=== PATIENT | male | born 1975 | race Caucasian/White ===

== ENCOUNTER 2017-03-11 22:35 | Emergency (ER) | payer OTHER ==
[~2017-03-11] VITALS: Ht 172.7 cm; Wt 72.7 kg
[2017-03-11 22:50] VITALS: BP 122/70; PULSE 60; RESP 28; O2SAT 99
--- NOTE | 2017-03-11 23:18 | ED.REPORT ---
HPI-Extremity Problem Upper Date of Service March 11, 2017 ED Provider: Dr. Thomas Black M.D. The patient is a healthy 41 year old male who presents to the ED with a left elbow laceration onset 1.5 hours ago, after falling backwards onto a wheelbarrow. The patient denies numbness, tingling, weakness, additional injury/ trauma, or other symptoms. Nursing Notes Stated Complaint: LEFT ELBOW INJURY/CUT Chief Complaint: Extremity Trauma Nursing Notes Reviewed: Yes Allergies: Coded Allergies: No Known Allergies (Unverified , 03/11/17) General Time Seen by MD: 23:17 Chief Complaint Other (Left Elbow Laceration) Hx Obtained From: Patient Arrived By: Walk-in Onset Occurred: 1 - 4 hours ago Symptom Duration: Since onset Location: : Elbow left Quality: Painful Severity: Current: Moderate Severity: Maximum: Moderate Pertinent Negative: Relieved by nothing Immunizations: Unknown Recent Healthcare: No recent doctor visit Past Medical History Past Medical History None reported Past Surgical History None reported Smoking History Unknown if Ever Smoker Ambulatory Status Independent Review of Systems Review of Systems Note: + Left elbow laceration - Tingling Constitutional: Denies: Fever Musculoskeletal: Reports: Joint pain (Left Elbow) Neurologic: Denies: Numbness, Weakness Complete sys rev & neg: except as marked. Respiratory: Denies: Non-productive cough, Shortness of breath GI: Denies: Diarrhea, Vomiting Physical Exam Initial Vital Signs Vital Signs (First) Date Time Temp Pulse Resp B/P Pulse Ox O2 Delivery O2 Flow Rate FiO2 03/11/17 22:50 36.7 60 28 122/70 99 Room Air Initial VS: Reviewed Head / Eyes: Atraumatic, Normocephalic ENT: Conjunctiva normal, No scleral icterus Skin: Warm, Dry, No cyanosis Neurologic: Alert, Oriented, Nonfocal Psychiatric: Mood/affect normal, Behavior normal, Normal thought content General/Constitutional: Awake, Alert, No acute distress Upper Extremity / MS: Full range of motion, Neurologic intact, Vascular intact Trauma / Burn / Environmental: Positive: Laceration (Left elbow, V-shaped, 3cm) Procedures Laceration Management Time: 23:33 Procedure Performed by: ED physician Consent / Setup / Site Prep: Consent from patient, Time-out performed, Hand hygiene observed, Stand sterile technique Location of Wound: V-shaped laceration, left elbow Wound Length: 3 cm Local Anesthesia: Lidocaine 1% Wound Preparation: Hibiclens - Chlorhexidine, Normal saline Irrigation: Copious Foreign Body Explore / Removal: Explored for foreign body Repair Skin: ___ O (4), Nylon # Sutures - Skin: 4 Closure Layers: 1 Suture Technique: Simple Post-Procedure / Complications: Dressing applied, No complications, Condition improved, Tolerated procedure well, Patient stable Re-Eval/Medical Decision Re-Evaluation/Progress : Time of Eval: 23:33 Patient Status: Condition improved Re-Evaluation/Progress Note: Laceration management performed. Discussed with patient physical exam findings, diagnosis, and plan for discharge. Follow-up and return to the ER instructions given. Patient agrees with plan for care and all questions were addressed. Counseled Regarding: Diagnosis, Need for follow-up, When/why to return to ED Discharge & Departure Impression: Primary Impression: Laceration Disposition: Home Discharge Condition All VS Reviewed: Yes Condition: Improved Patient Instructions: Laceration (ED) Additional Instructions: Your emergency room evaluation today included interview and physical exam. You have received four stitches to your left elbow. These will need to be removed in approximately ten days. Return to ED for this. Keep wound clean and covered , apply antibiotic ointment 1-2 times daily. Tetanus booster given today, good for at least 5 years. Return to the ER with any new or worsening symptoms including redness, swelling , or increasing pain. Referrals: Sam Hwang MD (PCP) Scribe Attestation Portions of this note were transcribed by Donna Chew. I, Dr. Black, personally performed the history, physical exam, and medical decision-making; I reviewed and confirmed the accuracy of the information in the transcribed note. Signed by: Devante Valdivia, 03/12/2017, 00:35 copies to: Sam Hwang MD, Donald L MD March 11, 2017 23:17 DONNA CHEW March 11, 2017 23:21
[2017-03-11] MEDS ORDERED: TdaP Vaccine 0.5 mL Inj IM ONE (23:20)
== END 2017-03-12 00:05 | disposition home or self-care (01) ==
LOC: SED 22:35
DX: S51.012A Laceration without foreign body of left elbow, initial encounter (principal); W18.39XA Other fall on same level, initial encounter; Y93.89 Activity, other specified; Y92.89 Other specified places as the place of occurrence of the external cause; Y99.8 Other external cause status; Z23 Encounter for immunization